=== PATIENT | female | born 1935 | race Caucasian/White ===

== ENCOUNTER 2020-02-15 19:34 | Emergency (ER) | payer MEDICARE, BC ==
[2020-02-15] MEDS ORDERED: Ondansetron 4 MG/2 ML SDV IVPUSH ONE (21:52)
[2020-02-15] MEDS ORDERED: Sodium Chloride 0.9% 10 ML Syringe FLUSH PRN (21:52)
[2020-02-15] MEDS ORDERED: Sodium Chloride 0.9% 1,000 ML IV SCH (22:00)
--- NOTE | 2020-02-15 22:04 | EDM.PDOC ---
ED HPI GENERAL MEDICAL PROBLEM - General Chief Complaint: General Stated Complaint: WEAKNESS Time Seen by Provider: 02/15/20 21:42 Source of Information: Reports: Family History Limitations: Reports: Other (Patient has a history of dementia with some cognitive impairment. Primary part of the story was given by the patient's daughter.) - History of Present Illness INITIAL COMMENTS - FREE TEXT/NARRATIVE: Lilia is an 84-year-old female with a history of dementia who lives by herself. Her daughter went to check on her and found her to be weak, unable to get out of bed, and probably dehydrated. The daughter is unsure of when the patient last ate or how much she has drank so the patient brought her to the ER for evaluation. The daughter reports that the patient has had several episodes of stool incontinence today and one episode of urinary incontinence. The patient has had significant worsening of her cognitive function and is unable to get up without significant assistance. Normally the patient is able to function fairly highly. The daughter states that usually the patient is inquiring about playing a card game every time she has an opportunity but has not mentioned it at all today. The patient mentions that she has had some nasal congestion and cough which the daughter attributes to be allergies. - Related Data Allergies Allergy/AdvReac Type Severity Reaction Status Date / Time chloramphenicol Allergy Itching Verified 02/15/20 20:11 [From Chloromycetin] chloramphenicol sod succ Allergy Itching Verified 02/15/20 20:11 [From Chloromycetin] furosemide [From Lasix] Allergy Cannot Verified 02/15/20 20:18 Remember hydrochlorothiazide Allergy Cannot Verified 02/15/20 20:18 [From HydroDiuril] Remember Sulfa (Sulfonamide Allergy Rash Verified 02/15/20 20:11 Antibiotics) Home Meds: Home Meds amLODIPine [Norvasc] 5 mg PO BEDTIME 10/11/12 [History] atenoloL [Atenolol] 25 mg PO DAILY 10/11/12 [History] Acetaminophen [Tylenol] 2 tab PO ASDIRECTED PRN 12/11/13 [History] Cyanocobalamin (Vitamin B12) [Vitamin B12] 1,000 mcg PO DAILY 12/11/13 [History] Lovastatin 40 mg PO DAILY 12/11/13 [History] Aspirin [Ecotrin EC] 81 mg PO DAILY 02/15/20 [History] Donepezil [Aricept] 10 mg PO BEDTIME 02/15/20 [History] Past Medical History - Past Health History Medical/Surgical History: Denies Medical/Surgical History HEENT History: Reports: Cataract, Hard of Hearing, Impaired Vision Cardiovascular History: Reports: Heart Murmur, High Cholesterol, Hypertension, Other (See Below) Other Cardiovascular History: aortic stenosis, mitral valve disorder Respiratory History: Reports: Sleep Apnea, Other (See Below) Other Respiratory History: does not use a CPAP machine- refused to use Gastrointestinal History: Reports: None Genitourinary History: Reports: Urinary Incontinence, UTI, Recurrent RETENTION REPRESENTATIVE History: Reports: Psychiatric History: Reports: Dementia Hematologic History: Reports: B12 Deficiency - Infectious Disease History Infectious Disease History: Reports: Mumps, Pertussis (Whooping Cough) - Past Surgical History Head Surgeries/Procedures: Reports: None GI Surgical History: Reports: None Female Surgical History: Reports: D&C, Endometrial Ablation Social & Family History - Tobacco Use Tobacco Use Status *Q: Never Tobacco User - Caffeine Use Caffeine Use: Reports: None - Recreational Drug Use Recreational Drug Use: No ED ROS GENERAL - Review of Systems Review Of Systems: See Below Constitutional: Reports: Chills (Low-grade fever in the ER), Weakness, Fatigue, Decreased Appetite HEENT: Reports: No Symptoms Respiratory: Reports: No Symptoms Cardiovascular: Reports: No Symptoms Endocrine: Reports: No Symptoms GI/Abdominal: Reports: Nausea, Stool Incontinence. Denies: Constipation, Diarrhea Musculoskeletal: Reports: No Symptoms Skin: Reports: No Symptoms Neurological: Reports: Confusion (Acute on chronic), Difficulty Walking, Weakness (Generalized) Psychiatric: Reports: No Symptoms Hematologic/Lymphatic: Reports: No Symptoms Immunologic: Reports: No Symptoms ED EXAM, GENERAL - Physical Exam Exam: See Below Exam Limited By: No Limitations General Appearance: Alert, No Apparent Distress Eye Exam: Bilateral Eye: EOMI, PERRL Throat/Mouth: Normal Voice, Other (Very dry mucous membranes) Head: Atraumatic, Normocephalic Neck: Normal Inspection, Supple, Non-Tender, Full Range of Motion. No: Carotid Bruit, Lymphadenopathy (R), Lymphadenopathy (L) Respiratory/Chest: No Respiratory Distress, Lungs Clear, Normal Breath Sounds, No Accessory Muscle Use, Chest Non-Tender Cardiovascular: Normal Peripheral Pulses, Regular Rate, Rhythm, No JVD, Systolic Murmur (2/6 holosystolic murmur heard at the apex) Peripheral Pulses: 2+: Radial (L), Radial (R), Posterior Tibial (L), Posterior Tibial (R) GI/Abdominal: Normal Bowel Sounds, Soft, Non-Tender, No Distention. No: Guarding, Rigid, Rebound Extremities: Normal Inspection, Normal Range of Motion, Pedal Edema (1+ bilateral) Neurological: Alert, No Motor/Sensory Deficits, Slow to Respond Psychiatric: Normal Affect, Normal Mood Skin Exam: Warm, Dry, Intact, Normal Color Lymphatic: No Adenopathy Course - Vital Signs Last Recorded V/S: Last Vital Signs Temp 37.6 C 02/15/20 20:18 Pulse 68 02/15/20 22:44 Resp 18 02/15/20 20:27 BP 116/59 L 02/15/20 22:44 Pulse Ox 95 02/15/20 22:44 - Orders/Labs/Meds Orders: Active Orders 24 hr Category Date Time Status Sodium Chloride 0.9% [Normal Saline] 1,000 ml Med 02/15/20 22:00 Active IV ASDIRECTED Sodium Chloride 0.9% [Saline Flush] Med 02/15/20 21:52 Active 10 ml FLUSH ASDIRECTED PRN Saline Lock Insert [OM.PC] Routine Oth 02/15/20 21:52 Ordered Medication Orders Sodium Chloride (Normal Saline) 1,000 mls @ 500 mls/hr IV ASDIRECTED AYLIN Last Admin: 02/15/20 22:02 Dose: 500 mls/hr Documented by: VAL Sodium Chloride (Saline Flush) 10 ml FLUSH ASDIRECTED PRN PRN Reason: Keep Vein Open Last Admin: 02/15/20 22:03 Dose: 10 ml Documented by: VAL Labs: Laboratory Tests 02/15/20 02/15/20 02/15/20 Range/Units 22:06 22:06 22:07 WBC 11.9 H (4.5-11.0) K/uL RBC 4.95 (3.30-5.50) M/uL Hgb 13.9 (12.0-15.0) g/dL Hct 43.2 (36.0-48.0) % MCV 87 (80-98) fL MCH 28 (27-31) pg MCHC 32 (32-36) % Plt Count 190 (150-400) K/uL Neut % (Auto) 84 H (36-66) % Lymph % (Auto) 8 L (24-44) % Burt % (Auto) 8 H (2-6) % Eos % (Auto) 0 L (2-4) % Baso % (Auto) 0 (0-1) % Sodium 133 L (140-148) mmol/L Potassium 3.7 (3.6-5.2) mmol/L Chloride 98 L (100-108) mmol/L Carbon Dioxide 24 (21-32) mmol/L Anion Gap 14.7 H (5.0-14.0) mmol/L BUN 24 H D (7-18) mg/dL Creatinine 1.3 H (0.6-1.0) mg/dL Est Cr Clr Drug Dosing 25.02 mL/min Estimated GFR (MDRD) 39 L (>60) Glucose 93 (74-106) mg/dL Calcium 9.4 (8.5-10.1) mg/dL Total Bilirubin 1.5 H (0.2-1.0) mg/dL AST 23 (15-37) U/L ALT 22 (12-78) U/L Alkaline Phosphatase 66 (46-116) U/L C-Reactive Protein 18.65 H (0.0-0.3) mg/dL Total Protein 6.8 (6.4-8.2) g/dL Albumin 2.8 L (3.4-5.0) g/dL Globulin 4.0 H (2.3-3.5) g/dL Albumin/Globulin Ratio 0.7 L (1.2-2.2) Urine Color Yellow (YELLOW) Urine Appearance Cloudy A (CLEAR) Urine pH 5.5 (5.0-8.0) Ur Specific [place] >= 1.030 (1.008-1.030) Urine Protein 30 H (NEGATIVE) mg/dL Urine Glucose (UA) Negative (NEGATIVE) mg/dL Urine Ketones Negative (NEGATIVE) mg/dL Urine Occult Blood Moderate H (NEGATIVE) Urine Nitrite Negative (NEGATIVE) Urine Bilirubin Negative (NEGATIVE) Urine Urobilinogen 0.2 (0.2-1.0) EU/dL Ur Leukocyte Esterase Trace H (NEGATIVE) Urine RBC 0-5 (0-5) Urine WBC 20-30 H (0-5) Ur Epithelial Cells Not seen Amorphous Sediment Few Urine Bacteria Few Urine Mucus Few Meds: Medications Generic Name Dose Route Start Last Admin Trade Name Freq PRN Reason Stop Dose Admin Sodium Chloride 1,000 mls @ 500 mls/hr 02/15/20 22:00 02/15/20 22:02 Normal Saline IV 500 mls/hr ASDIRECTED AYLIN Administration Sodium Chloride 10 ml 02/15/20 21:52 02/15/20 22:03 Saline Flush FLUSH 10 ml ASDIRECTED PRN Administration Keep Vein Open Discontinued Medications Generic Name Dose Route Start Last Admin Trade Name Freq PRN Reason Stop Dose Admin Cephalexin 250 mg 02/15/20 23:24 Keflex 250 Mg/5 Ml Susp PO 02/15/20 23:25 ONETIME ONE Cephalexin 500 mg 02/15/20 23:27 Keflex PO 02/15/20 23:28 ONETIME ONE Ondansetron HCl 4 mg 02/15/20 21:52 02/15/20 22:02 Zofran IVPUSH 02/15/20 21:53 4 mg ONETIME ONE Administration - Re-Assessments/Exams Free Text/Narrative Re-Assessment/Exam: 02/15/20 23:32 I reviewed the patient's labs and as suspected it appears that she has a urinary tract infection. We will start her on cephalexin 500 mg twice daily for 7 days to treat an uncomplicated UTI with mild cognitive decline. She also has some mild to moderate dehydration which we have repleted her with a liter of normal saline. Encourage the patient to continue to drink fully fluids including water with a goal of 80 to 100 ounces a day. Departure - Departure Time of Disposition: 23:29 Disposition: Home, Self-Care 01 Condition: Good Clinical Impression: Dehydration Urinary tract infection Qualifiers: Urinary tract infection type: acute cystitis Hematuria presence: without hematuria Qualified Code(s): N30.00 - Acute cystitis without hematuria Altered mental status Qualifiers: Altered mental status type: disorientation Qualified Code(s): R41.0 - Disorientation, unspecified - Discharge Information Instructions: Dehydration, Adult, [id number], Urinary Tract Infection, Adult, [id number], Mild Neurocognitive Disorder Referrals: Alvarado Howard MERCH[employer]ISE SUPERVISOR [Primary Care Provider] - Forms: ED Department Discharge Care Plan Goals: You have a urinary tract infection and dehydration likely contributing to your confusion. We will start you on cephalexin 500 mg twice daily for the next 7 days. This should help clear up the urinary tract infection and anticipate that it will improve your cognition as well. You should make sure to drink plenty of fluids to prevent further dehydration. This would entail between 80 and 100 ounces of water a day. Sepsis Event Note (ED) - Evaluation Sepsis Screening Result: No Definite Risk - Focused Exam Vital Signs: Vital Signs Temp Pulse Resp BP Pulse Ox 02/15/20 22:44 68 116/59 L 95 02/15/20 21:28 70 118/79 97 02/15/20 20:55 69 127/62 96 02/15/20 20:27 66 18 123/60 97 02/15/20 20:18 37.6 C 76 16 115/63 98 02/15/20 20:00 37.6 C 76 16 115/63 98 - Problem List & Annotations (1) Altered mental status SNOMED Code(s): 906915016 Code(s): R41.82 - ALTERED MENTAL STATUS, UNSPECIFIED Status: Acute Priority: High Current Visit: Yes Qualifiers: Altered mental status type: disorientation Qualified Code(s): R41.0 - Disorientation, unspecified (2) Dehydration SNOMED Code(s): 87256869 Code(s): E86.0 - DEHYDRATION Status: Acute Priority: High Current Visit: Yes (3) Urinary tract infection SNOMED Code(s): 34204062 Code(s): N39.0 - URINARY TRACT INFECTION, SITE NOT SPECIFIED Status: Acute Priority: High Current Visit: Yes Qualifiers: Urinary tract infection type: acute cystitis Hematuria presence: without hematuria Qualified Code(s): N30.00 - Acute cystitis without hematuria - Problem List Review Problem List Initiated/Reviewed/Updated: Yes - My Orders Last 24 Hours: My Active Orders 02/15/20 21:52 Sodium Chloride 0.9% [Saline Flush] 10 ml FLUSH ASDIRECTED PRN Saline Lock Insert [OM.PC] Routine 02/15/20 22:00 Sodium Chloride 0.9% [Normal Saline] 1,000 ml IV ASDIRECTED - Assessment/Plan Last 24 Hours: My Active Orders 02/15/20 21:52 Sodium Chloride 0.9% [Saline Flush] 10 ml FLUSH ASDIRECTED PRN Saline Lock Insert [OM.PC] Routine 02/15/20 22:00 Sodium Chloride 0.9% [Normal Saline] 1,000 ml IV ASDIRECTED
[2020-02-15 22:45] VITALS: BP 116/59; PULSE 68
[2020-02-15] MEDS ORDERED: Cephalexin 250 MG/5 ML Susp 100 ML Bottle PO ONE (23:24)
[2020-02-15] MEDS ORDERED: Cephalexin 250 MG Cap PO ONE (23:27)
== END 2020-02-15 23:56 | disposition home or self-care (01) ==
LOC: JP.ED 19:34
DX: N30.00 Acute cystitis without hematuria (principal); E86.0 Dehydration; R41.0 Disorientation, unspecified; I10 Essential (primary) hypertension; E78.00 Pure hypercholesterolemia, unspecified; F03.90 Unspecified dementia, unspecified severity, without behavioral disturbance, psychotic disturbance, mood disturbance, and anxiety; Z88.8 Allergy status to other drugs, medicaments and biological substances; Z88.2 Allergy status to sulfonamides; Z79.82 Long term (current) use of aspirin; Z79.899 Other long term (current) drug therapy
CPT/HCPCS: 36415; 80053; 81001; 85025; 86140; 96374; 99284; A9270; J2405; J7030

== ENCOUNTER 2021-04-20 23:43 | Inpatient (IN) | payer MEDICARE, BC ==
[2021-04-21] MEDS ORDERED: Albuterol/Ipratropium 3.0-0.5 MG/3 ML Neb Soln NEB ONE (00:32)
[2021-04-21 00:54] LABS: CORONAVIRUS COVID-19 NAA NEGATIVE (NEGATIVE)
[2021-04-21] MEDS ORDERED: cefTRIAXone 1 GM in Sodium Chloride 0.9% 50 ML IV ONE (02:08)
[2021-04-21] MEDS ORDERED: Sodium Chloride 0.9% 1,000 ML IV SCH (02:15)
[2021-04-21] MEDS ORDERED: Morphine 2 MG/ML SYRINGE IVPUSH PRN (04:16)
[2021-04-21] MEDS ORDERED: oxyCODONE 5 MG Tab PO PRN (04:16)
[2021-04-21] MEDS ORDERED: Acetaminophen 325 MG Tab PO PRN (04:16)
[2021-04-21] MEDS ORDERED: Melatonin 3 MG Tab PO PRN (04:16)
[2021-04-21] MEDS ORDERED: Docusate Sodium 100 MG Cap PO PRN (04:16)
[2021-04-21] MEDS ORDERED: Bisacodyl 5 MG Tab PO PRN (04:16)
[2021-04-21] MEDS ORDERED: Albuterol 0.083% 2.5 MG/3 ML Neb Soln NEB PRN (04:16)
[2021-04-21] MEDS: Atenolol 25 MG Tab PO SCH (09:02)
[2021-04-21] MEDS: Gabapentin 300 MG Cap PO SCH ×3 (09:04→20:17)
[2021-04-21] MEDS: Donepezil 10 MG Tab PO SCH (09:04)
[2021-04-21] MEDS: Enoxaparin 30 MG/0.3 ML Syringe SUBCUT SCH (09:05)
[2021-04-21] MEDS: Albuterol/Ipratropium 3.0-0.5 MG/3 ML Neb Soln NEB PRN ×3 (11:50→20:23)
[2021-04-21] MEDS ORDERED: atorvaSTATin 10 MG Tab PO SCH (21:00)
[2021-04-21] MEDS ORDERED: Melatonin 3 MG Tab PO SCH (21:00)
[2021-04-21] MEDS ORDERED: amLODIPine 5 MG Tab PO SCH (21:00)
[2021-04-22] MEDS: Albuterol/Ipratropium 3.0-0.5 MG/3 ML Neb Soln NEB PRN ×2 (01:18→10:20)
[2021-04-22] MEDS: Gabapentin 300 MG Cap PO SCH (08:43)
[2021-04-22] MEDS: Atenolol 25 MG Tab PO SCH (08:43)
[2021-04-22] MEDS: Donepezil 10 MG Tab PO SCH (08:44)
[2021-04-22] MEDS: Enoxaparin 30 MG/0.3 ML Syringe SUBCUT SCH (08:45)
[2021-04-22] MEDS ORDERED: cefTRIAXone 1 GM in Sodium Chloride 0.9% 50 ML IV SCH (09:00)
[2021-04-22 11:50] VITALS: BP 131/58; PULSE 90
== END 2021-04-22 13:00 | disposition home or self-care (01) | DRG 57 ==
LOC: JP.ED 23:43 → JP.MS 04-21 03:18
PROVIDERS: ADMIT Internal Medicine; ATTEND Internal Medicine
DX: A41.9 Sepsis, unspecified organism (principal); G30.1 Alzheimer's disease with late onset; F02.80 Dementia in other diseases classified elsewhere, unspecified severity, without behavioral disturbance, psychotic disturbance, mood disturbance, and anxiety; J98.2 Interstitial emphysema; H54.7 Unspecified visual loss; J84.10 Pulmonary fibrosis, unspecified; I35.0 Nonrheumatic aortic (valve) stenosis; I10 Essential (primary) hypertension; G47.30 Sleep apnea, unspecified; H91.90 Unspecified hearing loss, unspecified ear; F03.90 Unspecified dementia, unspecified severity, without behavioral disturbance, psychotic disturbance, mood disturbance, and anxiety; E78.00 Pure hypercholesterolemia, unspecified; Z20.822 Contact with and (suspected) exposure to COVID-19; I50.9 Heart failure, unspecified; E53.8 Deficiency of other specified B group vitamins; I11.0 Hypertensive heart disease with heart failure; Z87.440 Personal history of urinary (tract) infections; R32 Unspecified urinary incontinence; Z79.899 Other long term (current) drug therapy; Z88.2 Allergy status to sulfonamides; Z88.8 Allergy status to other drugs, medicaments and biological substances; Z98.49 Cataract extraction status, unspecified eye
CPT/HCPCS: 0241U; 36415; 71045; 71045-26; 74176; 80048; 80053; 81001; 83605; 83880; 84484; 85025; 85027; 86140; 87040; 87086; 93005; 93010; 94640; 99285; 99285-25; A9270-GY; J0696; J1650; J7030; J7620-GY

== ENCOUNTER 2021-09-11 04:02 | Inpatient (IN) | payer MEDICARE, BC ==
[2021-09-11] MEDS ORDERED: HYDROmorphone 0.5 MG/0.5 ML Syringe IVPUSH ONE (05:36)
[2021-09-11] MEDS ORDERED: Sodium Chloride 0.9% 10 ML Syringe FLUSH PRN (05:36)
[2021-09-11] MEDS ORDERED: Ondansetron 4 MG/2 ML SDV IVPUSH ONE (05:36)
[2021-09-11] MEDS ORDERED: Docusate Sodium 100 MG Cap PO PRN (06:09)
[2021-09-11] MEDS ORDERED: Morphine 2 MG/ML SYRINGE IVPUSH PRN (06:09)
[2021-09-11] MEDS ORDERED: Promethazine 6.25 MG in Sodium Chloride 0.9% 50 ML IV PRN (06:09)
[2021-09-11] MEDS ORDERED: Ondansetron 4 MG Tab.DIS PO PRN (06:09)
[2021-09-11] MEDS ORDERED: Ondansetron 4 MG/2 ML SDV IV PRN (06:09)
[2021-09-11 06:21] LABS: ESTIMATED GFR 55 mL/min (>60)
[2021-09-11] MEDS ORDERED: LORazepam 0.5 MG Tab PO PRN ×2 (06:57→18:15)
[2021-09-11] MEDS ORDERED: Donepezil 10 MG Tab PO SCH ×3 (09:00→21:00)
[2021-09-11] MEDS ORDERED: amLODIPine 5 MG Tab PO SCH (09:00)
[2021-09-11] MEDS ORDERED: Atenolol 25 MG Tab PO SCH (09:00)
[2021-09-11] MEDS: Gabapentin 300 MG Cap PO SCH ×3 (11:04→21:37)
[2021-09-11] MEDS ORDERED: Lactated Ringers 1,000 ML IV SCH (14:30)
[2021-09-11] MEDS ORDERED: fentaNYL 100 MCG/2 ML SDV ONE (14:46)
[2021-09-11] MEDS: Nozin Nasal Sanitizer NASBOTH SCH ×2 (16:00→21:37)
[2021-09-11] MEDS ORDERED: Lactated Ringers 500 ML IV ONE (16:15)
[2021-09-11] MEDS ORDERED: Propofol 200 MG/20 ML SDV ONE (16:22)
[2021-09-11] MEDS ORDERED: traMADol 50 MG Tab PO PRN (16:27)
[2021-09-11] MEDS ORDERED: HYDROmorphone 0.5 MG/0.5 ML Syringe IVPUSH PRN (16:28)
[2021-09-11] MEDS ORDERED: atorvaSTATin 10 MG Tab PO SCH (17:00)
[2021-09-11] MEDS ORDERED: Lactated Ringers 1,000 ML ONE (17:53)
[2021-09-11] MEDS ORDERED: Albuterol 8 GM Inhaler INH PRN (18:15)
[2021-09-11] MEDS ORDERED: Albuterol 0.083% 2.5 MG/3 ML Neb Soln NEB PRN (18:15)
[2021-09-11] MEDS ORDERED: Promethazine 25 MG Tab PO PRN (18:19)
[2021-09-11] MEDS: Sodium Chloride 0.9% 1,000 ML IV SCH (18:56)
[2021-09-11] MEDS: Loratadine 10 MG Tab PO SCH (20:19)
[2021-09-11] MEDS ORDERED: Enoxaparin 40 MG/0.4 ML Syringe SUBCUT SCH (21:00)
[2021-09-11] MEDS: Acetaminophen 500 MG Tab PO SCH (21:37)
[2021-09-12] MEDS ORDERED: ceFAZolin 1 GM in Sodium Chloride 0.9% 50 ML IV SCH (02:00)
[2021-09-12] MEDS: Acetaminophen 500 MG Tab PO SCH ×5 (02:48→21:48)
[2021-09-12] MEDS: Docusate Sodium 100 MG Cap PO SCH ×2 (08:12→21:48)
[2021-09-12] MEDS: Gabapentin 300 MG Cap PO SCH ×3 (08:13→21:49)
[2021-09-12] MEDS: Nozin Nasal Sanitizer NASBOTH SCH ×2 (08:14→21:47)
[2021-09-12] MEDS: Celecoxib 200 MG Cap PO SCH ×2 (08:16→21:48)
[2021-09-12] MEDS: oxyCODONE 5 MG Tab PO PRN ×2 (08:17→14:35)
[2021-09-12] MEDS: Sodium Chloride 0.9% 1,000 ML IV SCH ×2 (08:20→21:16)
[2021-09-12] MEDS ORDERED: Loratadine 10 MG Tab PO SCH (09:00)
[2021-09-12] MEDS: ceFAZolin 1 GM in Premix Bag 1 BAG IV SCH ×2 (10:02→17:29)
[2021-09-12] MEDS: cefTRIAXone 1 GM in Sodium Chloride 0.9% 50 ML IV SCH (10:47)
[2021-09-12] MEDS: atorvaSTATin 10 MG Tab PO SCH (16:24)
[2021-09-12] MEDS ORDERED: amLODIPine 5 MG Tab PO SCH (21:00)
[2021-09-12] MEDS ORDERED: Pravastatin 20 MG Tab PO SCH (21:00)
[2021-09-12] MEDS: Atenolol 25 MG Tab PO SCH (21:47)
[2021-09-12] MEDS: Enoxaparin 40 MG/0.4 ML Syringe SUBCUT SCH (21:47)
[2021-09-12] MEDS: Loratadine 10 MG Tab PO SCH (21:48)
[2021-09-12] MEDS: Melatonin 3 MG Tab PO SCH (21:49)
[2021-09-13] MEDS: Acetaminophen 500 MG Tab PO SCH ×4 (03:03→21:08)
[2021-09-13] MEDS ORDERED: Furosemide 20 MG/2 ML VIAL IVPUSH ONE (03:44)
[2021-09-13] MEDS: Sodium Chloride 0.9% 1,000 ML IV SCH (04:09)
[2021-09-13] MEDS: oxyCODONE 5 MG Tab PO PRN ×3 (07:39→17:01)
[2021-09-13] MEDS: Gabapentin 300 MG Cap PO SCH ×3 (10:00→21:00)
[2021-09-13] MEDS: Celecoxib 200 MG Cap PO SCH ×2 (10:00→21:00)
[2021-09-13] MEDS: Docusate Sodium 100 MG Cap PO SCH ×2 (10:00→21:02)
[2021-09-13] MEDS ORDERED: Bisacodyl 10 MG Supp RECTAL ONE ×2 (10:00→14:00)
[2021-09-13] MEDS ORDERED: Sodium Phosphate,Monobasic/Sodium Phosphate,Dibasic Enema 133 ML Bottle RECTAL PRN (10:00)
[2021-09-13] MEDS: Nozin Nasal Sanitizer NASBOTH SCH ×2 (10:00→20:59)
[2021-09-13] MEDS: cefTRIAXone 1 GM in Sodium Chloride 0.9% 50 ML IV SCH (11:24)
[2021-09-13] MEDS: atorvaSTATin 10 MG Tab PO SCH (17:01)
[2021-09-13] MEDS: Enoxaparin 40 MG/0.4 ML Syringe SUBCUT SCH (21:01)
[2021-09-13] MEDS: Melatonin 3 MG Tab PO SCH (21:02)
[2021-09-13] MEDS: Loratadine 10 MG Tab PO SCH (21:03)
[2021-09-13] MEDS: Atenolol 25 MG Tab PO SCH (21:04)
[2021-09-13] MEDS: Cephalexin 250 MG Cap PO SCH (21:08)
[2021-09-14] MEDS: Acetaminophen 500 MG Tab PO SCH ×2 (04:01→09:22)
[2021-09-14] MEDS: Cephalexin 250 MG Cap PO SCH ×2 (04:01→09:23)
[2021-09-14] MEDS: oxyCODONE 5 MG Tab PO PRN ×2 (04:44→09:30)
[2021-09-14 07:32] VITALS: BP 133/48; PULSE 69
[2021-09-14] MEDS: Celecoxib 200 MG Cap PO SCH (09:22)
[2021-09-14] MEDS: Nozin Nasal Sanitizer NASBOTH SCH (09:22)
[2021-09-14] MEDS: Gabapentin 300 MG Cap PO SCH (09:22)
[2021-09-14] MEDS: Docusate Sodium 100 MG Cap PO SCH (09:22)
== END 2021-09-14 12:10 | DRG 522 ==
LOC: JP.ED 04:02 → JP.MS 06:09
PROVIDERS: ADMIT Family Medicine; ATTEND Specialist
PROC: 0SRS0JZ Replacement of Left Hip Joint, Femoral Surface with Synthetic Substitute, Open Approach (ICD-10-PCS; principal; 2021-09-11)
DX: S72.002A Fracture of unspecified part of neck of left femur, initial encounter for closed fracture (principal); N39.0 Urinary tract infection, site not specified; I50.9 Heart failure, unspecified; G30.1 Alzheimer's disease with late onset; F02.80 Dementia in other diseases classified elsewhere, unspecified severity, without behavioral disturbance, psychotic disturbance, mood disturbance, and anxiety; I05.9 Rheumatic mitral valve disease, unspecified; H54.7 Unspecified visual loss; E53.8 Deficiency of other specified B group vitamins; E78.00 Pure hypercholesterolemia, unspecified; I11.0 Hypertensive heart disease with heart failure; B96.20 Unspecified Escherichia coli [E. coli] as the cause of diseases classified elsewhere; R32 Unspecified urinary incontinence; W19.XXXA Unspecified fall, initial encounter; Z88.2 Allergy status to sulfonamides; I10 Essential (primary) hypertension; G47.30 Sleep apnea, unspecified; Z87.81 Personal history of (healed) traumatic fracture; F03.90 Unspecified dementia, unspecified severity, without behavioral disturbance, psychotic disturbance, mood disturbance, and anxiety; Z88.8 Allergy status to other drugs, medicaments and biological substances; Z79.82 Long term (current) use of aspirin; Z79.899 Other long term (current) drug therapy; Z20.822 Contact with and (suspected) exposure to COVID-19
CPT/HCPCS: 36415; 73502 ×2; 80053; 85025; 85610; 85730; 99284; U0002; 51702; 72170; 72170-26; 81001; 85027; 87086; 87088; 87186; 96374; 96375; 97110-GP; 97162-GP; 99233; A9270-GY; C1776; J0690; J0696; J1170; J1650; J1940; J2270; J2405; J2704; J3010; J3490; J7030; J7120

== ENCOUNTER 2022-07-13 01:44 | Emergency (ER) | payer MEDICARE, BC ==
[2022-07-13 02:13] LABS: BILIRUBIN,URINE NEGATIVE (NEGATIVE); COLOR,URINE YELLOW (YELLOW); GLUCOSE,URINE NEGATIVE (NEGATIVE); KETONES,URINE NEGATIVE (NEGATIVE); LEUKOCYTE ESTERASE,URINE SMALL (NEGATIVE); NITRITE,URINE POSITIVE (NEGATIVE); OCCULT BLOOD,URINE TRACE-INTACT (NEGATIVE); PH,URINE 5.5 (5.0-8.0); PROTEIN,URINE 30 mg/dL (NEGATIVE); UROBILINOGEN,URINE 0.2 EU/dL (0.2-1.0)
[2022-07-13 02:16] VITALS: BP 147/61; PULSE 69
[2022-07-13 02:18] LABS: AMORPHOUS SEDIMENT,URINE NOT SEEN; APPEARANCE,URINE CLOUDY (CLEAR); BACTERIA,URINE MODERATE; EPITHELIAL CELLS,URINE FEW; MUCUS,URINE FEW; RBC,URINE 0-5 (0-5); WBC,URINE PACKED (0-5)
[2022-07-13] MEDS ORDERED: cefTRIAXone 1 GM, Lidocaine 1% 2.1 ML IM ONE ×2 (02:28)
== END 2022-07-13 02:59 | disposition home or self-care (01) ==
LOC: JP.ED 01:44
DX: N39.0 Urinary tract infection, site not specified (principal); E78.00 Pure hypercholesterolemia, unspecified; I10 Essential (primary) hypertension; Z88.2 Allergy status to sulfonamides; Z88.8 Allergy status to other drugs, medicaments and biological substances; Z79.82 Long term (current) use of aspirin; Z79.899 Other long term (current) drug therapy
CPT/HCPCS: 81001; 87086; 87088; 87186; 96372; 99284; J0696

== ENCOUNTER 2023-08-23 10:47 | Emergency (ER) | payer MEDICARE, BC ==
[2023-08-23 11:56] LABS: BASOPHILS ABSOLUTE AUTO 0.07 K/uL (0.00-0.10); BASOPHILS PERCENT AUTO 0.9 % (0.1-1.3); EOSINOPHILS ABSOLUTE AUTO 0.36 K/uL (0.00-0.40); EOSINOPHILS PERCENT AUTO 4.7 % (0.0-5.4); HEMATOCRIT 39.7 % (34.3-46.0); HEMOGLOBIN 13.1 g/dL (11.2-15.5); IMMATURE GRAN PERCENT AUTO 0.3 % (0.0-0.7); LYMPHOCYTES ABSOLUTE AUTO 1.45 K/uL (0.8-3.3); LYMPHOCYTES PERCENT AUTO 19.1 % (11.4-47.7); MEAN CORPUSCULAR HEMOGLOBIN 28.8 pg (31.6-35.5); MEAN CORPUSCULAR VOLUME 87.3 fL (81.4-99.0); MONOCYTES ABSOLUTE AUTO 0.47 K/uL (0.20-0.90); MONOCYTES PERCENT AUTO 6.2 % (3.3-12.6); NEUTROPHILS ABSOLUTE AUTO 5.23 K/uL (1.0-7.6); NEUTROPHILS PERCENT AUTO 68.8 % (40.0-78.1); PLATELET COUNT,PLT 213 K/uL (130-375); RED BLOOD CELL COUNT 4.55 M/uL (3.77-5.24); WHITE BLOOD CELL COUNT,WBC 7.6 K/uL (3.2-11.0)
[2023-08-23 11:57] LABS: IMMATURE GRAN ABSOLUTE AUTO 0.02 K/uL (0.00-0.23)
[2023-08-23 12:12] VITALS: BP 160/58; PULSE 61
[2023-08-23 12:15] LABS: ALANINE AMINOTRANSFERASE,ALT 14 U/L (12-78); ALBUMIN 3.2 g/dL (3.4-5.0); ALKALINE PHOSPHATASE 81 U/L (46-116); ASPARTATE AMNIOTRANSFERASE,AST 12 U/L (15-37); BILIRUBIN TOTAL 0.8 mg/dL (0.2-1.0); BLOOD UREA NITROGEN,BUN 16 mg/dL (7-18); CALCIUM 9.5 mg/dL (8.5-10.1); CARBON DIOXIDE,CO2 28 mmol/L (21-32); CHLORIDE,CL 109 mmol/L (100-108); CREATININE 0.8 mg/dL (0.6-1.0); EST CRCL DRUG DOSING (CG) 34.24 mL/min; ESTIMATED GFR 70 mL/min (>60); GLUCOSE RANDOM 98 mg/dL (74-106); POTASSIUM,K 3.7 mmol/L (3.6-5.2); PROTEIN TOTAL,TP 6.5 g/dL (6.4-8.2); SODIUM,NA 144 mmol/L (140-148)
[2023-08-23 12:16] LABS: ANION GAP 10.7 mmol/L (5.0-14.0)
[2023-08-23 13:40] LABS: APPEARANCE,URINE CLEAR (CLEAR); BILIRUBIN,URINE NEGATIVE (NEGATIVE); COLOR,URINE YELLOW (YELLOW); GLUCOSE,URINE NEGATIVE (NEGATIVE); KETONES,URINE NEGATIVE (NEGATIVE); LEUKOCYTE ESTERASE,URINE NEGATIVE (NEGATIVE); NITRITE,URINE NEGATIVE (NEGATIVE); OCCULT BLOOD,URINE TRACE-INTACT (NEGATIVE); PROTEIN,URINE NEGATIVE (NEGATIVE); UROBILINOGEN,URINE 0.2 EU/dL (0.2-1.0)
[2023-08-23 13:57] LABS: BACTERIA,URINE NOT SEEN; EPITHELIAL CELLS,URINE NOT SEEN; RBC,URINE 0-5 (0-5); WBC,URINE NOT SEEN (0-5)
[2023-08-23 14:04] LABS: PROTHROMBIN TIME 10.4 sec (9.2-10.6); PTT,PARTIAL THROMBOPLSTIN TIME 22.5 sec (21.8-27.3)
== END 2023-08-23 15:00 | disposition home or self-care (01) ==
LOC: JP.ED 10:47
DX: I63.9 Cerebral infarction, unspecified (principal); F03.90 Unspecified dementia, unspecified severity, without behavioral disturbance, psychotic disturbance, mood disturbance, and anxiety; I10 Essential (primary) hypertension; E78.00 Pure hypercholesterolemia, unspecified; Z88.2 Allergy status to sulfonamides; Z88.8 Allergy status to other drugs, medicaments and biological substances; Z79.899 Other long term (current) drug therapy
CPT/HCPCS: 36415; 70450; 71045; 73502-LT; 80053; 81001; 84443; 84484; 85025; 85610; 85730; 93005; 99285

== ENCOUNTER 2023-10-21 21:48 | Inpatient (IN) | payer MEDICARE, BC ==
[2023-10-21] MEDS ORDERED: Naloxone 0.4 MG/ML SDV IVPUSH PRN (23:14)
[2023-10-21] MEDS: HYDROmorphone 0.5 MG/0.5 ML Syringe IVPUSH ONE (23:51)
[2023-10-22 00:02] LABS: BASOPHILS PERCENT AUTO 0.7 % (0.1-1.3); EOSINOPHILS ABSOLUTE AUTO 0.38 K/uL (0.00-0.40); EOSINOPHILS PERCENT AUTO 2.7 % (0.0-5.4); HEMATOCRIT 39.3 % (34.3-46.0); HEMOGLOBIN 13.2 g/dL (11.2-15.5); IMMATURE GRAN ABSOLUTE AUTO 0.07 K/uL (0.00-0.23); IMMATURE GRAN PERCENT AUTO 0.5 % (0.0-0.7); LYMPHOCYTES ABSOLUTE AUTO 1.56 K/uL (0.8-3.3); MEAN CORPUSCULAR HEMOGLOBIN 29.5 pg (31.6-35.5); MEAN CORPUSCULAR HGB CONC 33.6 g/dL (31.6-35.5); MEAN CORPUSCULAR VOLUME 87.7 fL (81.4-99.0); MONOCYTES PERCENT AUTO 5.6 % (3.3-12.6); NEUTROPHILS ABSOLUTE AUTO 11.25 K/uL (1.0-7.6); NEUTROPHILS PERCENT AUTO 79.5 % (40.0-78.1); PLATELET COUNT,PLT 213 K/uL (130-375); RED BLOOD CELL COUNT 4.48 M/uL (3.77-5.24); WHITE BLOOD CELL COUNT,WBC 14.2 K/uL (3.2-11.0)
[2023-10-22] MEDS: HYDROmorphone 0.5 MG/0.5 ML Syringe IVPUSH ONE ×2 (00:18→00:29)
[2023-10-22 00:43] LABS: ANION GAP 5.9 mmol/L (5.0-14.0); CALCIUM 9.8 mg/dL (8.5-10.1); CREATININE 0.9 mg/dL (0.6-1.0); EST CRCL DRUG DOSING (CG) 30.44 mL/min
[2023-10-22] MEDS ORDERED: Naloxone 0.4 MG/ML SDV IVPUSH PRN (00:51)
[2023-10-22] MEDS ORDERED: Ondansetron 4 MG/2 ML SDV IV PRN (00:51)
[2023-10-22] MEDS: QUEtiapine 25 MG Tab PO ONE (01:09)
[2023-10-22] MEDS: Melatonin 3 MG Tab PO PRN (01:09)
[2023-10-22] MEDS: HYDROmorphone 1 MG/ML Syringe IVPUSH PRN (02:25)
[2023-10-22] MEDS: Cyanocobalamin (Vitamin B12) 1,000 MCG Tab PO SCH ×2 (03:48→09:56)
[2023-10-22] MEDS: tiZANidine 2 MG Tab PO PRN (04:49)
[2023-10-22 05:13] LABS: APPEARANCE,URINE SLIGHTLY CLOUDY (CLEAR); BILIRUBIN,URINE NEGATIVE (NEGATIVE); COLOR,URINE YELLOW (YELLOW); GLUCOSE,URINE NEGATIVE (NEGATIVE); KETONES,URINE NEGATIVE (NEGATIVE); LEUKOCYTE ESTERASE,URINE TRACE (NEGATIVE); NITRITE,URINE NEGATIVE (NEGATIVE); OCCULT BLOOD,URINE MODERATE (NEGATIVE); PROTEIN,URINE NEGATIVE (NEGATIVE); UROBILINOGEN,URINE 0.2 EU/dL (0.2-1.0)
[2023-10-22 05:57] LABS: AMORPHOUS SEDIMENT,URINE FEW; BACTERIA,URINE MODERATE; EPITHELIAL CELLS,URINE FEW; MUCUS,URINE NOT SEEN; WBC,URINE 0-5 (0-5)
[2023-10-22] MEDS: Sodium Chloride 0.9% 1,000 ML IV SCH (06:35)
[2023-10-22] MEDS: HYDROmorphone 0.5 MG/0.5 ML Syringe IVPUSH PRN (07:28)
[2023-10-22] MEDS: Sennosides/Docusate Sodium 50-8.6 MG Tab PO SCH (09:56)
[2023-10-22] MEDS ORDERED: fentaNYL 100 MCG/2 ML SDV ONE (13:00)
[2023-10-22] MEDS ORDERED: Propofol 200 MG/20 ML SDV ONE (13:01)
[2023-10-22] MEDS ORDERED: Midazolam 1 MG/ML 2 ML SDV ONE (13:01)
[2023-10-22] MEDS ORDERED: ceFAZolin 1 GM in Sodium Chloride 0.9% 50 ML IV ONE (14:00)
[2023-10-22] MEDS: ceFAZolin 1 GM in Premix Bag 1 BAG IV ONE (15:30)
[2023-10-22] MEDS ORDERED: Lactated Ringers 1,000 ML ONE (15:45)
[2023-10-22] MEDS: Bupivacaine 0.5% 30 ML SDV ONE (15:59)
[2023-10-22] MEDS: Atenolol 25 MG Tab PO SCH (20:32)
[2023-10-22] MEDS: oxyCODONE 5 MG Tab PO PRN (20:33)
[2023-10-23] MEDS: Acetaminophen 325 MG Tab PO PRN (05:46)
[2023-10-24 09:09] LABS: BASOPHILS ABSOLUTE AUTO 0.05 K/uL (0.00-0.10); BASOPHILS PERCENT AUTO 0.4 % (0.1-1.3); EOSINOPHILS ABSOLUTE AUTO 0.33 K/uL (0.00-0.40); EOSINOPHILS PERCENT AUTO 2.9 % (0.0-5.4); HEMATOCRIT 33.3 % (34.3-46.0); HEMOGLOBIN 11.3 g/dL (11.2-15.5); IMMATURE GRAN ABSOLUTE AUTO 0.03 K/uL (0.00-0.23); IMMATURE GRAN PERCENT AUTO 0.3 % (0.0-0.7); LYMPHOCYTES ABSOLUTE AUTO 1.45 K/uL (0.8-3.3); LYMPHOCYTES PERCENT AUTO 12.7 % (11.4-47.7); MEAN CORPUSCULAR HEMOGLOBIN 29.4 pg (31.6-35.5); MEAN CORPUSCULAR HGB CONC 33.9 g/dL (31.6-35.5); MEAN CORPUSCULAR VOLUME 86.5 fL (81.4-99.0); MONOCYTES ABSOLUTE AUTO 1.02 K/uL (0.20-0.90); NEUTROPHILS ABSOLUTE AUTO 8.51 K/uL (1.0-7.6); NEUTROPHILS PERCENT AUTO 74.7 % (40.0-78.1); PLATELET COUNT,PLT 184 K/uL (130-375); RED BLOOD CELL COUNT 3.85 M/uL (3.77-5.24); WHITE BLOOD CELL COUNT,WBC 11.4 K/uL (3.2-11.0)
[2023-10-24] MEDS: Magnesium Hydroxide 400 MG/5 ML Susp 30 ML Cup PO PRN (09:12)
[2023-10-24 09:30] LABS: A/G RATIO 0.9 (1.2-2.2); ALANINE AMINOTRANSFERASE,ALT 12 U/L (12-78); ALBUMIN 2.8 g/dL (3.4-5.0); ALKALINE PHOSPHATASE 71 U/L (46-116); ANION GAP 8.5 mmol/L (5.0-14.0); ASPARTATE AMNIOTRANSFERASE,AST 13 U/L (15-37); BILIRUBIN TOTAL 1.6 mg/dL (0.2-1.0); BLOOD UREA NITROGEN,BUN 16 mg/dL (7-18); CARBON DIOXIDE,CO2 25 mmol/L (21-32); CHLORIDE,CL 107 mmol/L (100-108); CREATININE 0.8 mg/dL (0.6-1.0); EST CRCL DRUG DOSING (CG) 34.24 mL/min; ESTIMATED GFR 70 mL/min (>60); GLUCOSE RANDOM 114 mg/dL (74-106); POTASSIUM,K 3.9 mmol/L (3.6-5.2); PROTEIN TOTAL,TP 6.1 g/dL (6.4-8.2); SODIUM,NA 140 mmol/L (140-148)
[2023-10-26] MEDS: hydrALAZINE 20 MG/ML SDV IVPUSH PRN (07:54)
[2023-10-26] MEDS: Ondansetron 4 MG Tab.DIS PO PRN (08:22)
[2023-10-26] MEDS: Metoprolol Succinate 50 MG Tab.ER PO SCH (20:25)
[2023-10-26] MEDS: Aspirin 81 MG Tab.Chew PO SCH (20:25)
[2023-10-27 11:03] VITALS: BP 174/75; PULSE 65
== END 2023-10-27 11:09 | DRG 494 ==
LOC: JP.ED 21:48 → JP.MS 23:33
PROVIDERS: ADMIT Registered Nurse; ATTEND Specialist
PROC: 0QSK04Z Reposition Left Fibula with Internal Fixation Device, Open Approach (ICD-10-PCS; 2023-10-22)
PROC: 0QSH04Z Reposition Left Tibia with Internal Fixation Device, Open Approach (ICD-10-PCS; principal; 2023-10-22 15:10)
DX: S82.202A Unspecified fracture of shaft of left tibia, initial encounter for closed fracture (principal); S82.402A Unspecified fracture of shaft of left fibula, initial encounter for closed fracture; I10 Essential (primary) hypertension; E78.00 Pure hypercholesterolemia, unspecified; Z66 Do not resuscitate; G30.9 Alzheimer's disease, unspecified; F02.80 Dementia in other diseases classified elsewhere, unspecified severity, without behavioral disturbance, psychotic disturbance, mood disturbance, and anxiety; I50.9 Heart failure, unspecified; W19.XXXA Unspecified fall, initial encounter; G47.30 Sleep apnea, unspecified; Z88.2 Allergy status to sulfonamides; Z88.8 Allergy status to other drugs, medicaments and biological substances; Z79.82 Long term (current) use of aspirin; Z79.899 Other long term (current) drug therapy; Z98.890 Other specified postprocedural states; X58.XXXA Exposure to other specified factors, initial encounter
CPT/HCPCS: 01480-QZ; 36415; 51798; 71045; 71045-26; 73502-26-LT; 73502-LT; 73600-26-LT; 73600-LT; 76000; 80048; 80053; 81001; 85025; 86850; 86900; 86901; 93005; 93010; 97161-GP; 99223; 99231; 99233; 99239; 99285; A9270-GY; C1713; J0360; J0665; J0689; J1170; J2250; J2704; J3010; J7030; J7120; Q0162